=== PATIENT | female | born 2000 | race African-American/Black ===

== ENCOUNTER 2024-01-03 21:45 | Emergency (ER) | payer OTHER ==
[~2024-01-03] VITALS: Ht 157.5 cm; Wt 47.6 kg
[2024-01-03 22:58] VITALS: BP 102/61; TEMP 98.1; O2SAT 98
== END 2024-01-03 23:24 | disposition home or self-care (01) ==
LOC: ER 21:49
DX: R07.89 Other chest pain (principal)
CPT/HCPCS: 71045-TC